=== PATIENT | female | born 1980 | race African-American/Black ===

== ENCOUNTER 2017-05-12 11:30 | Inpatient (IN) ==
[2017-05-12] MEDS ORDERED: MAGNESIUM HYDROXIDE SUSP 30 ML UDCUP PO PRN (16:11)
[2017-05-12] MEDS ORDERED: BISACODYL 10 MG SUPP RECTAL PRN (16:11)
[2017-05-12] MEDS ORDERED: DEXTROSE 5% LACTATED RINGERS 500 ML IV ONE (16:11)
[2017-05-12] MEDS: LACTATED RINGERS 1,000 ML IV SCH (17:15)
[2017-05-12 17:16] LABS: Apearance,Urine CLEAR (Clear); Bacteria,Urine Occasional /HPF (Few); Bilirubin,Urine Negative (Negative); Blood, Urine Negative (Negative); Glucose,Urine (UA) Negative (Negative); Ketones,Urine Negative (Negative); Nitrite,Urine Negative (Negative); Protein,Urine Negative; RBC,Urine <1 /HPF (0-4); Urine Color Yellow (Yellow); Urine Specific Gravity 1.014 (1.001-1.035); Urine Urobilinogen < 2.0 EU/DL (0.2-1.0); WBC,Urine 1 /HPF (0-6)
--- NOTE | 2017-05-12 17:42 | OB/GYN History & Physical ---
History of Present Illness Chief complaint: fever, malaise History of present illness: Ms. Resendez is a 36 year old female at about 7 weeks by LMP who presents with fever and malaise since last . The patient presented to the emergency room over the weekend and they told her she possibly had a UTI but did not treat her with any antibiotics because her urine dip was negative. She was told that her white count was 6 and she probably had a virus and was to be sent home. She called the office on Wednesday and was prescribed Reglan and she became better. On of last week her temperature was 103 and she says this morning it was 100.5. There are no other sick people at home. She has no issues with cramping or bleeding. She has not had an ultrasound or new OB visit yet. The patient says she also has a cough but is unable to produce any sputum from it. She had a sore throat last week but she does not have one anymore. Home Medications Medication Instructions Recorded Confirmed Type Multivitamin () [ 1 tablet PO DAILY 05/12/17 05/12/17 History Vitamin] Allergies Allergy/AdvReac Type Severity Reaction Status Date / Time No Known Allergies Allergy Unverified 05/08/17 12:09 Medical,Surgical,& Family Hx - Medical History Cardio: No history of: CAD Reproductive: No history of: Reproductive Problems (Dr. Dan did an exploritory Lap) - Social History Smoking Status: Never smoker Frequency of Alcohol Use: None Type of Drug Use: None Exam UNDERGROUND MINER - Constitutional Vitals: Vital Signs Temp Pulse Resp BP Pulse Ox 05/12/17 13:34 98.3 F 99 H 20 124/71 99 General appearance: normal weight, mild distress - Respiratory Respiratory exam: Present: rhonchi (mild resolved after a few deep breaths). Absent: accessory muscle use - Cardiovascular Cardiovascular exam: Present: regular rate and rhythm - GI/Abdominal GI/Abdominal exam: Absent: guarding, tenderness, rebound - Extremities Exam Extremities exam: Absent: calf tenderness - Neurological Exam Neurological exam: Present: alert, oriented X3 - Psychiatric Psychiatric exam: Present: normal affect Assessment and Plan (1) Fever Status: Acute Assessment and plan: Labs ordered and are still pending at this time. We will proceed with a throat swab and flu swab even though it is out of season. We will consider a chest x- ray. Risks benefits and alternatives were reviewed with the patient regarding the chest x-ray due to her . Current Visit: Yes (2) Early stage of Status: Acute Assessment and plan: Titers pending and we will proceed with a pelvic ultrasound once the titers are back. Current Visit: Yes
[2017-05-12] MEDS: ONDANSETRON 4 MG/2 ML VIAL IV PRN (17:44)
[2017-05-12 18:48] LABS: Basophils % 0.3 % (0.0-0.8); Eosinophils # 0.1 10*3/uL (0.0-0.87); Eosinophils % 1.4 % (0.00-10.9); Hematocrit 31.9 VOL% (35.7-47.0); Immature Granulocytes % 0.3 %; Immature Granulocytes Absolute 0.02 #; Lymphocytes % 31.8 % (21.3-54.2); Mean Corpuscular HGB Conc 34.5 GM/DL (32-36); Mean Corpuscular Hemoglobin 31 PG (27-34); Mean Corpuscular Volume 89.1 FL (87-102); Mean Platelet Volume 10.5 FL (9.6-12.0); Monocytes # 0.3 10*3/uL (0.11-0.8); Monocytes % 4.8 % (1.7-12.7); Neutrophils # 3.8 10*3/uL (1.4-7.4); Neutrophils % 61.4 % (38.7-73.9); Platelet Count 307 T/CUMM (130-400); Red Blood Count 3.58 MC/CUMM (3.8-5.5); Red Cell Distribution Width 12.1 % (9.3-17.3); White Blood Count 6.2 T/CUMM (4-12)
--- NOTE | 2017-05-12 19:01 | XRay Report ---
Exam: XR chest 2V Date: 05/12/2017 6:14 PM Indication: Cough, fever Comparison: None Technical: PA lateral Findings: Examination reveals patchy infiltrate in the right middle lobe with some silhouetting of the heart border and atelectatic change present. Heart is normal in size otherwise. The mediastinum and bony structures are intact. Impression: Right middle lobe pneumonic infiltrate PROCEDURE INTERPRETED AT [facility] DEPARTMENT OF RADIOLOGY Final Report Signed by: Dr. Luis Miguel Velez
[2017-05-12 19:16] LABS: Alanine Aminotransferase 19 U/L (13-56); Alkaline Phosphatase 101 U/L (45-117); Aspartate Amino Transferase 23 U/L (0-37); Bilirubin,Total < 0.39 MG/DL (0.2-1.0); Blood Urea Nitrogen 5 MG/DL (7-18); Glucose 124 MG/DL (74-106); Osmolality,Calculated 274.5 MOS/KG (273-304); Potassium 3.6 MMOL/L (3.5-5.1); Sodium 139 MMOL/L (136-145); Total Protein 6.4 G/DL (6.4-8.3)
--- NOTE | 2017-05-12 19:30 | Ultrasound Report ---
Exam: US OB <= 14 weeks fetus Date: 05/12/2017 6:15 PM Comparison: None Indication: Fever nausea vomiting cramping Findings: Transabdominal imaging was obtained. Uterus: 10.1 x 5.1 x 4.4 cm Gestational sac: Single gestational sac present with heart rate of 145 bpm pole: [place]-rump length is 0.92 cm this corresponds to a 7 week 0 day gestation Yolk sac: Yes Placenta cannot be identified definitely at this estimated gestational age. Amniotic fluid is appropriate for this estimated gestational age Right ovary: 1.7 x 0.9 x 1.3 cm Left ovary: 8.7 x 6.0 x 6.4 cm there is a 7.2 x 5.3 x 4.7 cm cyst in the left ovary second cyst measures 1.7 x 1.4 x 1.8 cm Free fluid: None Bladder: Unremarkable Impression: 1. 7 weeks 0 day intrauterine . Follow-up at 17-20 weeks recommended for morphology. 2. Large cyst in the left ovary measuring up to 7.2 cm with smaller 1.8 cm cyst. Exact etiology is undetermined. Follow-up from a cyst are recommended. The possibility of a dermoid cannot be totally excluded. Ultrasound images were stored and captured PROCEDURE INTERPRETED AT [facility] DEPARTMENT OF RADIOLOGY Final Report Signed by: Dr. Luis Miguel Velez
[2017-05-12 19:31] LABS: Alanine Aminotransferase 20 U/L (13-56); Albumin 2.9 G/DL (3.4-5.0); Alkaline Phosphatase 97 U/L (45-117); Aspartate Amino Transferase 21 U/L (0-37); Bilirubin,Total < 0.39 MG/DL (0.2-1.0); Blood Urea Nitrogen 4 MG/DL (7-18); Calcium 8.6 MG/DL (8.5-10.1); Glucose 125 MG/DL (74-106); Osmolality,Calculated 276.4 MOS/KG (273-304); Potassium 3.7 MMOL/L (3.5-5.1); Sodium 140 MMOL/L (136-145); Total Protein 6.2 G/DL (6.4-8.3)
[2017-05-12] MEDS: DOCUSATE SODIUM 100 MG CAPSULE PO SCH (20:31)
[2017-05-12] MEDS ORDERED: BENZOCAINE/MENTHOL LOZENGE 18/BOX PO PRN (23:04)
[2017-05-12] MEDS: guaiFENesin/CODEINE 5 ML LIQUID PO PRN (23:23)
[2017-05-12] MEDS: cefTRIAXone 1,000 MG in SODIUM CHLORIDE 0.9% 100 ML IV SCH (23:26)
[2017-05-13] MEDS: LACTATED RINGERS 1,000 ML IV SCH ×5 (03:00→20:30)
[2017-05-13] MEDS ORDERED: ACETAMINOPHEN 325 MG TABLET PO PRN (07:33)
[2017-05-13] MEDS: BENZONATATE 100 MG CAPSULE PO PRN ×2 (08:16→13:28)
[2017-05-13] MEDS: DOCUSATE SODIUM 100 MG CAPSULE PO SCH ×2 (08:17→20:56)
--- NOTE | 2017-05-13 12:36 | OB/GYN Progress Note ---
Assessment and Plan (1) Fever Status: Acute Assessment and plan: The pt has not had a fever while admitted. her CXR is indicative of a right middle lobe pneumonia. She was started on Rocephin yesterday. we will get a medicine consult for further management Current Visit: Yes (2) Early stage of Status: Acute Assessment and plan: u/s done and showed an IUP at 7 week. No Ob issues at this time. Once pt is more stable we may order the new OB labs while th ept is in the hospital Current Visit: Yes CUPOLA LINER - PN: Subj Interval history: The patient is feeling a little bit better but she still has a cough. She says it is nonproductive or if it is productive she cannot bring it all the way up. She says the Robitussin did help her some last night. Exam CUPOLA LINER - Constitutional Vitals: Vital Signs Temp Pulse Resp BP Pulse Ox 05/13/17 11:23 98.1 F 76 18 105/62 99 05/13/17 08:00 98.8 F 77 18 107/67 99 05/13/17 06:00 18 05/13/17 04:00 97.8 F 88 18 113/56 98 05/13/17 02:00 20 05/13/17 00:00 98.8 F 74 20 102/72 100 05/12/17 22:00 20 05/12/17 20:00 98.6 F 100 H 20 113/72 96 05/12/17 13:34 98.3 F 99 H 20 124/71 99 General appearance: normal weight, no acute distress - Respiratory Respiratory exam: Present: clear to auscultation bilaterally. Absent: accessory muscle use - Cardiovascular Cardiovascular exam: Present: regular rate and rhythm - GI/Abdominal GI/Abdominal exam: Absent: guarding, tenderness, rebound - Extremities Exam Extremities exam: Absent: calf tenderness - Neurological Exam Neurological exam: Present: alert, oriented X3 - Psychiatric Psychiatric exam: Present: normal affect, normal mood - Skin Skin exam: Present: normal color Results - Labs CBC & BMP: 05/12/17 17:25 05/12/17 17:25 - Diagnostic Findings Procedure: Ultrasound: report reviewed by me, X-ray: report reviewed by me
--- NOTE | 2017-05-13 13:58 | Hospitalist Consult Note ---
<Adrianna Goddard - Last Filed: 05/13/17 13:53> Assessment and Plan - Time spent with patient Time spent with patient: Greater than 30 minutes (1) Pneumonia affecting in first trimester Status: Acute Assessment and plan: Ms. Resendez is a 36-year-old -Iranian female who is 7 weeks 0 days gestation with her second admitted by Dr. Cartwright from [facility] with pneumonia. Hospital medicine has been consulted to assist with treatment. Patient is currently on Rocephin, Robitussin and Tessalon Perles. Her white count is normal and she is now afebrile. She does have conversational dyspnea and dyspnea on exertion. Will discuss with Dr. Turk if breathing treatments would be appropriate for first trimester patient. Otherwise we will continue this current plan of care and we will continue to monitor. Dr. Turk will see and examined patient and further recommendations to follow. Current Visit: Yes (2) Fever Status: Acute Current Visit: Yes (3) Early stage of Status: Acute Current Visit: Yes History of Present Illness - Data of Consult Patient: new to practice Consult date: 05/13/17 Requesting Physician: Claudia Ozuna - Consult Narrative Reason for consult: pneumonia History of present illness: Ms. Resendez is a 36 year old -Iranian female with no prior medical history but 7 weeks with her second baby admitted by Dr. Cartwright from [facility] with fever and malaise since last . She came to the emergency room over the weekend with the same complaints and they thought she had a UTI or a viral infection. She was not treated with any antibiotics at that time. On last week her temperature was 103 and this morning it was 100.5. Patient states she does have a cough and her chest is sore with inspiration. She also has dyspnea on exertion. She denies headache, blurry vision, dysphasia , abdominal pain, diarrhea or constipation, or lower extremity edema. She has a normal white count and she has been afebrile since admission. Upon exam she is congested with conversational dyspnea and she does have crackles in her bilateral lung bases. She received a dose of Rocephin in the ED yesterday and has Robitussin and Tessalon Perles for cough. Her chest x-ray shows right middle lobe pneumonic infiltrate. 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 Hospital medicine has been consulted to assist with treatment of her pneumonia. CC: Claudia Dowell- - Home Medications and Allergies Home Medications: Home Medications Medication Instructions Recorded Confirmed Type Multivitamin () [ 1 tablet PO DAILY 05/12/17 05/12/17 History Vitamin] Allergies/Adverse Reactions: Allergies Allergy/AdvReac Type Severity Reaction Status Date / Time No Known Allergies Allergy Unverified 05/08/17 12:09 Medical,Surgical,& Family Hx - Medical History Cardio: No history of: CAD Gastrointestinal: No history of: GERD Reproductive: No history of: Reproductive Problems (Dr. Dan did an exploritory Lap) - Surgical History Reproductive Surgeries: Surgical HX of;: Dilation and Curettage - Family History Family History: Reports;: Family Heart Disease - Social History Smoking Status: Never smoker Frequency of Alcohol Use: None Type of Drug Use: None Marital Status: Single Lives With:: Children Functional capacity: independent ambulation Review of systems: A complete 10 system review of systems was obtained and pertinent positives and negatives per HPI Exam - Constitutional Vitals: Period Temp Pulse Resp BP Sys/Carbajal Pulse Ox Last 24 Hr 97.8 F-98.8 F 74-100 18-20 102-113/56-72 96-100 Exam: Constitutional System: No distress. No tremulousness. Head: Normocephalic, atraumatic. Ears, Nose and Throat System: No evidence of Otitis or Mastoiditis. No epistaxis or discharge Eyes System: Pupils equal, round, and reactive. Extraocular muscles intact. Neck: Supple, without adenopathy, No jugular venous distention. No thyromegaly, neck mass, or prior surgery apparent. Respiratory System: Chest bilateral crackles in bases to auscultation. Cardiovascular System: Heart with regular rate and rhythm. No murmur. GI System: Abdomen soft, nontender. Normo active bowel sounds present. Musculoskeletal System: limbs with no pedal edema. Full distal pulses. Neurological System: No discernable sensory deficit. No aphasia Psychiatric System: Conversation is rational Results - Labs CBC & BMP: 05/12/17 17:25 05/12/17 17:25 Lab Results: I have reviewed the past 24 hour labs - Diagnostic Findings Procedure: Chest x-ray: report reviewed by me (Right lower lobe pneumonic infiltrate), Ultrasound: report reviewed by me ( ultrasound shows 7 weeks 0 day intrauterine . Large cyst in the left ovary measuring up to 7.2 cm) <Trish Turk - Last Filed: 05/13/17 14:40> History of Present Illness - Consult Narrative History of present illness: Ms. Resendez is a 36 year old female CC: Claudia Dowell- Exam - Constitutional Vitals: Period Temp Pulse Resp BP Sys/Carbajal Pulse Ox Last 24 Hr 97.8 F-98.8 F 74-100 18-20 102-113/56-72 96-100 Results - Labs CBC & BMP: 05/12/17 17:25 05/12/17 17:25
[2017-05-13] MEDS ORDERED: ALBUTEROL 0.63 MG/3 ML NEB RESP TX PRN (14:17)
[2017-05-13] MEDS: AZITHROMYCIN 250 MG TABLET PO SCH (15:07)
[2017-05-13] MEDS: ONDANSETRON 4 MG/2 ML VIAL IV PRN (18:01)
[2017-05-13] MEDS: cefTRIAXone 1,000 MG in SODIUM CHLORIDE 0.9% 100 ML IV SCH (20:56)
[2017-05-13] MEDS: guaiFENesin/CODEINE 5 ML LIQUID PO PRN (20:57)
[2017-05-14 06:23] LABS: Basophils % 0.3 % (0.0-0.8); Eosinophils # 0.2 10*3/uL (0.0-0.87); Eosinophils % 3.2 % (0.00-10.9); Hemoglobin 10.7 GM/DL (12.0-16.0); Immature Granulocytes % 0.3 %; Immature Granulocytes Absolute 0.02 #; Lymphocytes # 2.4 10*3/uL (1.4-4.0); Lymphocytes % 40.1 % (21.3-54.2); Mean Corpuscular HGB Conc 34.5 GM/DL (32-36); Mean Corpuscular Hemoglobin 31 PG (27-34); Mean Corpuscular Volume 88.8 FL (87-102); Mean Platelet Volume 9.9 FL (9.6-12.0); Monocytes # 0.3 10*3/uL (0.11-0.8); Monocytes % 5.6 % (1.7-12.7); Neutrophils % 50.5 % (38.7-73.9); Platelet Count 296 T/CUMM (130-400); Red Blood Count 3.49 MC/CUMM (3.8-5.5); White Blood Count 5.9 T/CUMM (4-12)
[2017-05-14 06:47] LABS: Eosinophils 2 % (0-10); Hypochromasia 1+; Lymphocytes 46 % (20-55); Platelet Estimate Adequate; Segmented Neutrophils 46 % (50-85); Total Cells Counted 100
[2017-05-14 06:57] LABS: Calcium 8.9 MG/DL (8.5-10.1); Magnesium 1.9 MG/DL (1.8-2.4); Osmolality,Calculated 273.5 MOS/KG (273-304); Potassium 4.4 MMOL/L (3.5-5.1)
[2017-05-14 07:25] VITALS: BP 100/61
[2017-05-14] MEDS: DOCUSATE SODIUM 100 MG CAPSULE PO SCH (08:42)
[2017-05-14] MEDS: AZITHROMYCIN 250 MG TABLET PO SCH (08:42)
[2017-05-14] MEDS: BENZONATATE 100 MG CAPSULE PO PRN (08:44)
--- NOTE | 2017-05-14 09:34 | Hospitalist Progress Note ---
Assessment and Plan (1) Early stage of Status: Acute Assessment and plan: Patient improved on current antibiotics. Can be discharged with oral Azithromycin 250mg po daily to complete a 5 day course. Current Visit: Yes (2) Pneumonia affecting in first trimester Status: Acute Assessment and plan: Per OB-[employer]. Current Visit: Yes Hospitalist: Subjective Interval history: Seeing Ms. Resendez in consultation for treatment of bacterial pneumonia. Patient is currently feeling much improved. Currently on Ceftriaxone and azithromycin initiated on yesterday. She has been afebrile since admission. Stable for discharge to complete a five day course total of antibiotics. Exam - Constitutional Vitals: Period Temp Pulse Resp BP Sys/Carbajal Pulse Ox Last 24 Hr 97.2 F-99.8 F 73-86 18-20 100-110/61-81 92-100 General appearance: no acute distress - Head Head exam: Present: normal inspection, normocephalic, atraumatic - Eye Eye exam: Present: EOMI - ENT ENT exam: Present: normal exam - Respiratory Respiratory exam: Present: clear to auscultation bilaterally. Absent: accessory muscle use, rales, rhonchi, stridor, wheezes - Cardiovascular Cardiovascular exam: Present: regular rate and rhythm. Absent: diastolic murmur , gallop, systolic murmur - GI/Abdominal GI/Abdominal exam: Present: normal bowel sounds - Neurological Exam Neurological exam: Present: alert, oriented X3, CN II-XII intact - Psychiatric Psychiatric exam: Present: normal affect, normal mood - Skin Skin exam: Present: normal color, warm, dry Results - Labs CBC & BMP: 05/14/17 05:53 05/14/17 05:53
--- NOTE | 2017-05-14 10:28 | Discharge Summary ---
Hospital Course - Hospital Course Hospital Course: The pt was admitted at 7 weeks with fever and cough. She was diagnosed with right middle lobe pneumonia and started on Rocephin and PO azithromycin. The hospitalist was consulted as well. The pt improved after a couple of days on the antibiotic. She had a pelvic u/s which showed an IUP and a 7 cm ovarian cyst. The pt has no symptoms of the cyst. Diagnosis - Discharge Diagnosis (1) Fever Status: Acute (2) Early stage of Status: Acute Specialty Discharge - Follow Up or Referrals Follow up with: Claudia Ozuna MD [Physician] - (pt has appointment on () at 2:30 pm ) Discharge Plan - Discharge Data Disposition: Disch To Home/Self Care Condition at Discharge: Stable Discharge Diet: advance to your usual diet Activity: no lifting Hygiene: may shower Weight Bearing at Discharge: full weight bearing Contact your physician if you experience:: fever over 101, Difficulty voiding, Redness or swelling, Nausea/Vomiting, Shortness of breath, Bleeding, pain uncontrolled by pain medications - Discharge Medications New Azithromycin Tab [Zithromax Tab] 250 mg PO DAILY #7 tablet No Action Multivitamin () [ Vitamin] 1 tablet PO DAILY - Follow Up or Referral - Forms/Instructions Exam - Constitutional Vitals: Period Temp Pulse Resp BP Sys/Carbajal Pulse Ox Last 24 Hr 97.2 F-99.8 F 73-86 18-20 100-110/61-81 92-100 General appearance: normal weight, no acute distress - Respiratory Respiratory exam: Present: clear to auscultation bilaterally. Absent: accessory muscle use - Cardiovascular Cardiovascular exam: Present: regular rate and rhythm - GI/Abdominal GI/Abdominal exam: Absent: guarding, tenderness, rebound - Extremities Exam Extremities exam: Absent: calf tenderness - Neurological Exam Neurological exam: Present: alert, oriented X3 - Psychiatric Psychiatric exam: Present: normal affect Discharge Results Procedures and tests throughout hospitalization: Pending Orders 05/12/17 16:45 Quick Strep Panel Stat 05/12/17 17:00 Urine Culture Stat 05/13/17 14:13 Sputum Culture and Gram Stain Routine Streptococcus pneumoniae Ag, U Routine 05/14/17 07:30 Legionella Ag, Urine Routine Labs on day of discharge: Labs from last 24 hours 05/14/17 05/14/17 05:53 05:53 WBC 5.9 RBC 3.49 L Hgb 10.7 L Hct 31.0 L MCV 88.8 MCH 31 MCHC 34.5 RDW 12.0 Plt Count 296 MPV 9.9 Neut % (Auto) 50.5 Lymph % (Auto) 40.1 Rich % (Auto) 5.6 Eos % (Auto) 3.2 Baso % (Auto) 0.3 Neut # (Auto) 3.0 Lymph # (Auto) 2.4 Rich # (Auto) 0.3 Eos # (Auto) 0.2 Baso # (Auto) 0.0 Total Counted 100 Immature Gran % 0.3 Nucleated RBC % 0.0 Immature Gran # 0.02 Segmented Neutrophils 46 L Lymphocytes 46 Monocytes 6 Eosinophils 2 Nucleated RBCs # 0.00 Platelet Estimate Adequate Hypochromasia 1+ Sodium 139 Potassium 4.4 Chloride 105 Carbon Dioxide 25 Anion Gap 13.4 BUN 5 L Creatinine 0.50 L GFR Calculation 170 BUN/Creatinine Ratio 10.00 Glucose 91 Calculated Osmolality 273.5 Calcium 8.9 Magnesium 1.9 Preliminary micro results at discharge 05/12/17 16:45 Quick Strep Confirmation Culture - Preliminary Throat No Group A Streptococcus isolated. DS: Provider Date of admission: 05/12/17 13:05 Primary care physician: . No PCP Attending physician on admission: Claudia Dowell- Consults: 05/13/17 07:35 Consult to Physician [CONS] Routine Comment: Consulting Provider: Consult to Specialist Group: Hospitalist Person Notified: [facility] Nurse Practioner Date Notified: 05/13/17 Time Notified: 07:30 Consult Notification Comment: Paged admit pager Discharging clinician: Claudia Dowell- Expected date of discharge: 05/14/17
[2017-05-14] MEDS: LACTATED RINGERS 1,000 ML IV SCH (11:16)
== END 2017-05-14 11:23 | disposition home or self-care (01) | DRG 781 ==
LOC: N.2E 13:05
PROVIDERS: ADMIT Obstetrics & Gynecology; ATTEND Obstetrics & Gynecology

== ENCOUNTER 2017-12-21 05:42 | Inpatient (IN) ==
[2017-12-21] MEDS ORDERED: FAMOTIDINE 20 MG/2 ML VIAL IV ONE (05:54)
[2017-12-21] MEDS ORDERED: CITRIC ACID/SODIUM CITRATE 30 ML UDCUP PO ONE (05:54)
[2017-12-21] MEDS ORDERED: ceFAZolin 2,000 MG in PREMIX 1 EACH IV ONE (05:54)
[2017-12-21] MEDS ORDERED: OXYTOCIN/LR 20 UNIT/1,000 ML BAG IV ONE ×2 (05:57→08:53)
[2017-12-21] MEDS: LACTATED RINGERS 1,000 ML IV SCH ×2 (06:15→20:35)
[2017-12-21 06:22] LABS: Basophils % 0.3 % (0.0-0.8); Eosinophils # 0.1 10*3/uL (0.0-0.87); Eosinophils % 1.2 % (0.00-10.9); Hematocrit 34.8 VOL% (35.7-47.0); Hemoglobin 11.4 GM/DL (12.0-16.0); Immature Granulocytes % 0.7 %; Immature Granulocytes Absolute 0.07 #; Lymphocytes # 3.6 10*3/uL (1.4-4.0); Lymphocytes % 33.4 % (21.3-54.2); Mean Corpuscular HGB Conc 32.8 GM/DL (32-36); Mean Corpuscular Hemoglobin 29 PG (27-34); Mean Corpuscular Volume 87.7 FL (87-102); Mean Platelet Volume 10.9 FL (9.6-12.0); Monocytes # 0.7 10*3/uL (0.11-0.8); Monocytes % 6.5 % (1.7-12.7); Neutrophils # 6.2 10*3/uL (1.4-7.4); Neutrophils % 57.9 % (38.7-73.9); Platelet Count 265 T/CUMM (130-400); Red Blood Count 3.97 MC/CUMM (3.8-5.5); Red Cell Distribution Width 15.3 % (9.3-17.3); White Blood Count 10.7 T/CUMM (4-12)
[2017-12-21 06:51] LABS: Alanine Aminotransferase 11 U/L (13-56); Albumin 2.4 G/DL (3.4-5.0); Alkaline Phosphatase 186 U/L (45-117); Aspartate Amino Transferase 32 U/L (0-37); Bilirubin,Total < 0.39 MG/DL (0.2-1.0); Blood Urea Nitrogen 7 MG/DL (7-18); Calcium 8.9 MG/DL (8.5-10.1); Glucose 83 MG/DL (74-106); Osmolality,Calculated 271.7 MOS/KG (273-304); Potassium 4.1 MMOL/L (3.5-5.1); Sodium 138 MMOL/L (136-145); Total Protein 6.5 G/DL (6.4-8.3)
[2017-12-21 07:43] LABS: Apearance,Urine CLEAR (Clear); Bilirubin,Urine Negative (Negative); Blood, Urine Negative (Negative); Glucose,Urine (UA) Negative (Negative); Ketones,Urine Negative (Negative); Mucus,Urine Occasional /LPF (Occasional); Nitrite,Urine Negative (Negative); Protein,Urine Negative; RBC,Urine 3 /HPF (0-4); Squamous Epithelial Cell,Urine Occasional /HPF (0-10); Urine Color Yellow (Yellow); Urine Specific Gravity 1.008 (1.001-1.035); Urine Urobilinogen < 2.0 EU/DL (0.2-1.0); WBC,Urine <1 /HPF (0-6)
[2017-12-21 08:50] LABS: Cord Venous Blood HCO3 19.6 MMOL/L; Cord Venous Blood PCO2 50.4 MMHG; Cord Venous Blood PO2 46.1
[2017-12-21] MEDS ORDERED: MEASLES/MUMPS/RUBELLA VACCINE 0.5 ML VIAL SUBCUT ONE (08:53)
[2017-12-21] MEDS ORDERED: WITCH HAZEL PADS 100/JAR TOP PRN (08:53)
[2017-12-21] MEDS ORDERED: ACETAMINOPHEN 325 MG TABLET PO PRN (08:53)
[2017-12-21] MEDS ORDERED: oxyCODONE/ACETAMINOPHEN 5-325 MG TABLET PO PRN (08:53)
[2017-12-21] MEDS ORDERED: BISACODYL 10 MG SUPP RECTAL PRN (08:53)
[2017-12-21] MEDS ORDERED: DIPH/TET/ACEL PERT BOOSTER VACCINE 0.5 ML VIAL IM ONE (08:53)
[2017-12-21] MEDS ORDERED: RHO(D) IMMUNE GLOBULIN 300 MCG SYRINGE IM ONE (08:53)
[2017-12-21] MEDS ORDERED: LANOLIN 50% CREAM 0.3 OZ TUBE TOP PRN (08:53)
[2017-12-21] MEDS ORDERED: ONDANSETRON 4 MG/2 ML VIAL IV PRN (08:53)
[2017-12-21] MEDS ORDERED: HYDROCORTISONE 2.5% RECTAL CREAM 30 GM TUBE TOP PRN (08:53)
[2017-12-21] MEDS ORDERED: BENZOCAINE 20%/MENTHOL 0.5% SPRAY 56 GM CAN TOP PRN (08:53)
[2017-12-21] MEDS ORDERED: SEVOFLURANE 1 UNIT/15 MINUTE INH ONE (09:08)
[2017-12-21] MEDS ORDERED: MORPHINE 10 MG/10 ML VIAL ONE (09:08)
[2017-12-21] MEDS ORDERED: ONDANSETRON 4 MG/2 ML VIAL ONE (09:09)
[2017-12-21] MEDS ORDERED: SUCCINYLCHOLINE 200 MG/10 ML VIAL ONE (09:09)
[2017-12-21] MEDS ORDERED: MIDAZOLAM 2 MG/2 ML VIAL ONE (09:09)
[2017-12-21] MEDS ORDERED: ACETAMINOPHEN 1,000 MG/100 ML VIAL IV ONE (09:09)
[2017-12-21] MEDS ORDERED: fentaNYL 100 MCG/2 ML VIAL ONE (09:09)
[2017-12-21] MEDS ORDERED: DEXAMETHASONE 10 MG/1 ML VIAL ONE (09:09)
[2017-12-21] MEDS ORDERED: NEOSTIGMINE 10 MG/10 ML VIAL ONE (09:10)
[2017-12-21] MEDS ORDERED: GLYCOPYRROLATE 0.4 MG/2 ML VIAL ONE (09:10)
[2017-12-21] MEDS ORDERED: ROCURONIUM 100 MG/10 ML VIAL IV ONE (09:10)
[2017-12-21] MEDS ORDERED: LACTATED RINGERS 3,000 ML IV ONE (09:10)
[2017-12-21] MEDS ORDERED: HYDROmorphone 2 MG/1 ML VIAL IV PRN ×2 (09:30→12:04)
[2017-12-21] MEDS: ceFAZolin 1,000 MG in SYRINGE 1 EACH IV SCH ×2 (15:49→23:19)
[2017-12-21] MEDS: oxyCODONE/ACETAMINOPHEN 5-325 MG TABLET PO PRN ×2 (17:19→23:19)
[2017-12-21] MEDS: AZITHROMYCIN 250 MG TABLET PO SCH (18:54)
[2017-12-21] MEDS ORDERED: SODIUM CHLORIDE 0.9% 100 ML IV ONE (23:09)
[2017-12-21] MEDS: IBUPROFEN 800 MG TABLET PO PRN (23:19)
[2017-12-22] MEDS: DOCUSATE SODIUM 100 MG CAPSULE PO SCH ×4 (01:24→22:35)
[2017-12-22] MEDS: MULTIVITAMIN (PRENATAL) TABLET PO SCH ×2 (01:26→08:56)
[2017-12-22] MEDS: IBUPROFEN 800 MG TABLET PO PRN ×3 (04:55→16:16)
[2017-12-22] MEDS: LACTATED RINGERS 1,000 ML IV SCH (04:57)
[2017-12-22] MEDS: SIMETHICONE CHEW 80 MG TABLET PO PRN ×2 (04:58→17:37)
[2017-12-22 07:27] LABS: Basophils % 0.1 % (0.0-0.8); Eosinophils % 0.2 % (0.00-10.9); Hematocrit 23.7 VOL% (35.7-47.0); Immature Granulocytes % 0.7 %; Immature Granulocytes Absolute 0.12 #; Lymphocytes # 4.5 10*3/uL (1.4-4.0); Mean Corpuscular HGB Conc 32.9 GM/DL (32-36); Mean Corpuscular Hemoglobin 29 PG (27-34); Mean Corpuscular Volume 86.8 FL (87-102); Mean Platelet Volume 11.5 FL (9.6-12.0); Monocytes # 1.2 10*3/uL (0.11-0.8); Monocytes % 6.7 % (1.7-12.7); Neutrophils # 11.5 10*3/uL (1.4-7.4); Neutrophils % 66.3 % (38.7-73.9); Platelet Count 239 T/CUMM (130-400); Red Cell Distribution Width 15.5 % (9.3-17.3)
[2017-12-22 07:28] LABS: Hemoglobin 7.8 GM/DL (12.0-16.0); Red Blood Count 2.73 MC/CUMM (3.8-5.5); White Blood Count 17.3 T/CUMM (4-12)
[2017-12-22] MEDS: ceFAZolin 1,000 MG in SYRINGE 1 EACH IV SCH (08:55)
[2017-12-22] MEDS: FERROUS SULFATE 325 MG TABLET PO SCH ×2 (08:56→22:35)
[2017-12-22] MEDS: AZITHROMYCIN 250 MG TABLET PO SCH (08:57)
[2017-12-22] MEDS: oxyCODONE/ACETAMINOPHEN 5-325 MG TABLET PO PRN ×2 (11:40→17:44)
[2017-12-22] MEDS ORDERED: MAGNESIUM HYDROXIDE SUSP 30 ML UDCUP PO PRN (20:49)
[2017-12-22] MEDS ORDERED: oxyCODONE/ACETAMINOPHEN 5-325 MG TABLET PO PRN (22:13)
[2017-12-23] MEDS: IBUPROFEN 800 MG TABLET PO PRN ×2 (01:19→10:12)
[2017-12-23] MEDS: SIMETHICONE CHEW 80 MG TABLET PO PRN (01:19)
[2017-12-23] MEDS: oxyCODONE/ACETAMINOPHEN 5-325 MG TABLET PO PRN ×3 (02:32→11:09)
[2017-12-23] MEDS ORDERED: METOCLOPRAMIDE 10 MG TABLET PO SCH (05:00)
[2017-12-23] MEDS ORDERED: MAGNESIUM CITRATE 300 ML BOTTLE PO ONE (06:05)
[2017-12-23 06:11] LABS: Basophils % 0.2 % (0.0-0.8); Eosinophils # 0.1 10*3/uL (0.0-0.87); Eosinophils % 0.3 % (0.00-10.9); Hematocrit 23.9 VOL% (35.7-47.0); Hemoglobin 7.9 GM/DL (12.0-16.0); Immature Granulocytes % 0.7 %; Immature Granulocytes Absolute 0.12 #; Lymphocytes # 3.5 10*3/uL (1.4-4.0); Lymphocytes % 19.5 % (21.3-54.2); Mean Corpuscular HGB Conc 33.1 GM/DL (32-36); Mean Corpuscular Hemoglobin 29 PG (27-34); Mean Corpuscular Volume 88.5 FL (87-102); Monocytes % 5.8 % (1.7-12.7); Neutrophils # 13.1 10*3/uL (1.4-7.4); Neutrophils % 73.5 % (38.7-73.9); Platelet Count 252 T/CUMM (130-400); Red Cell Distribution Width 15.9 % (9.3-17.3); White Blood Count 17.8 T/CUMM (4-12)
[2017-12-23 07:43] VITALS: BP 119/64
[2017-12-23] MEDS: DOCUSATE SODIUM 100 MG CAPSULE PO SCH (08:36)
[2017-12-23] MEDS: FERROUS SULFATE 325 MG TABLET PO SCH (08:36)
[2017-12-23] MEDS: MULTIVITAMIN (PRENATAL) TABLET PO SCH (08:36)
[2017-12-23] MEDS: AZITHROMYCIN 250 MG TABLET PO SCH (08:36)
== END 2017-12-23 13:50 | disposition home or self-care (01) | DRG 766 ==
LOC: N.LDOUT 05:42 → N.LD 05:43 → N.OB 10:07
PROVIDERS: ADMIT Specialist; ATTEND Specialist
PROC: LDCSECT (ICD-10-PCS; 2017-12-21 07:00)

== ENCOUNTER 2017-12-29 12:06 | Inpatient (IN) ==
[2017-12-29] MEDS ORDERED: LEVOFLOXACIN INJ 750 MG in PREMIX 1 EACH IV STA (14:17)
[2017-12-29] MEDS ORDERED: ALBUTEROL/IPRATROPIUM 3 ML NEB RESP TX STA (14:17)
[2017-12-29 15:05] LABS: Basophils # 0.1 10*3/uL (0.0-0.2); Basophils % 0.2 % (0.0-0.8); Eosinophils # 0.1 10*3/uL (0.0-0.87); Eosinophils % 0.2 % (0.00-10.9); Hematocrit 25.4 VOL% (35.7-47.0); Hemoglobin 8.1 GM/DL (12.0-16.0); Immature Granulocytes Absolute 0.72 #; Lymphocytes # 2.4 10*3/uL (1.4-4.0); Lymphocytes % 9.7 % (21.3-54.2); Mean Corpuscular HGB Conc 31.9 GM/DL (32-36); Mean Corpuscular Hemoglobin 29 PG (27-34); Mean Corpuscular Volume 90.1 FL (87-102); Mean Platelet Volume 9.7 FL (9.6-12.0); Monocytes # 1.5 10*3/uL (0.11-0.8); NRBC # 0.02 10*3/uL; Neutrophils # 19.5 10*3/uL (1.4-7.4); Neutrophils % 80.9 % (38.7-73.9); Platelet Count 498 T/CUMM (130-400); Red Blood Count 2.82 MC/CUMM (3.8-5.5); Red Cell Distribution Width 16.2 % (9.3-17.3); White Blood Count 24.2 T/CUMM (4-12)
[2017-12-29 15:27] LABS: Alanine Aminotransferase 14 U/L (13-56); Albumin 1.8 G/DL (3.4-5.0); Alkaline Phosphatase 240 U/L (45-117); Aspartate Amino Transferase 27 U/L (0-37); Bilirubin,Total < 0.39 MG/DL (0.2-1.0); Blood Urea Nitrogen 13 MG/DL (7-18); Calcium 8.7 MG/DL (8.5-10.1); Glucose 88 MG/DL (74-106); Osmolality,Calculated 281.1 MOS/KG (273-304); Potassium 4.4 MMOL/L (3.5-5.1); Sodium 142 MMOL/L (136-145); Total Protein 6.1 G/DL (6.4-8.3)
[2017-12-29] MEDS ORDERED: LEVOFLOXACIN INJ 150 ML IV ONE (15:38)
[2017-12-29 15:52] LABS: PT Patient Result 10.9 SECS
[2017-12-29 16:17] LABS: Band Neutrophils 3 % (0-10); Lymphocytes 7 % (20-55); Segmented Neutrophils 84 % (50-85); Total Cells Counted 100
[2017-12-29 16:18] LABS: Anisocytosis 1+; Macrocytosis 1+; Platelet Estimate Increased; Polychromasia Slight
[2017-12-29 16:21] LABS: Apearance,Urine Slightly Hazy (Clear); Bacteria,Urine Occasional /HPF (Few); Bilirubin,Urine Negative (Negative); Blood, Urine Moderate mg/dL (Negative); Glucose,Urine (UA) Negative (Negative); Ketones,Urine Negative (Negative); Mucus,Urine Few /LPF (Occasional); Nitrite,Urine Negative (Negative); Protein,Urine 30 MG/DL; RBC,Urine 1 /HPF (0-4); Squamous Epithelial Cell,Urine Occasional /HPF (0-10); Urine Color Yellow (Yellow); Urine Specific Gravity 1.034 (1.001-1.035); WBC,Urine 70 /HPF (0-6)
[2017-12-29] MEDS ORDERED: SODIUM CHLORIDE 0.9% 1,000 ML IV STA (16:35)
[2017-12-29] MEDS ORDERED: ACETAMINOPHEN 500 MG TABLET ONE (16:40)
[2017-12-29] MEDS ORDERED: ACETAMINOPHEN 500 MG TABLET PO STA (16:44)
[2017-12-29] MEDS ORDERED: DOCUSATE SODIUM 100 MG CAPSULE PO PRN (17:00)
[2017-12-29] MEDS ORDERED: ONDANSETRON 4 MG/2 ML VIAL IV PRN (17:00)
[2017-12-29] MEDS ORDERED: BISACODYL 10 MG SUPP RECTAL PRN (17:00)
[2017-12-29] MEDS ORDERED: MAGNESIUM HYDROXIDE SUSP 30 ML UDCUP PO PRN (17:00)
[2017-12-29] MEDS ORDERED: PIPERACILLIN/TAZOBACTAM 3,375 MG in SODIUM CHLORIDE 0.9% 100 ML IV STA (17:00)
[2017-12-29] MEDS ORDERED: BENZOCAINE/MENTHOL LOZENGE 18/BOX PO PRN (17:00)
[2017-12-29] MEDS: LACTATED RINGERS 1,000 ML IV SCH (18:18)
[2017-12-30] MEDS: IBUPROFEN 800 MG TABLET PO PRN ×3 (00:28→21:20)
[2017-12-30] MEDS: LACTATED RINGERS 1,000 ML IV SCH ×2 (01:18→09:15)
[2017-12-30] MEDS: ACETAMINOPHEN 325 MG TABLET PO PRN (01:46)
[2017-12-30 05:23] LABS: Basophils % 0.1 % (0.0-0.8); Eosinophils # 0.1 10*3/uL (0.0-0.87); Eosinophils % 0.3 % (0.00-10.9); Hematocrit 20.3 VOL% (35.7-47.0); Hemoglobin 6.5 GM/DL (12.0-16.0); Immature Granulocytes % 4.4 %; Immature Granulocytes Absolute 0.96 #; Lymphocytes # 2.7 10*3/uL (1.4-4.0); Lymphocytes % 12.7 % (21.3-54.2); Mean Corpuscular Hemoglobin 29 PG (27-34); Mean Platelet Volume 9.6 FL (9.6-12.0); Monocytes # 1.3 10*3/uL (0.11-0.8); NRBC # 0.02 10*3/uL; Neutrophils # 16.5 10*3/uL (1.4-7.4); Neutrophils % 76.5 % (38.7-73.9); Platelet Count 445 T/CUMM (130-400); Red Blood Count 2.28 MC/CUMM (3.8-5.5); Red Cell Distribution Width 16.5 % (9.3-17.3); White Blood Count 21.6 T/CUMM (4-12)
[2017-12-30 06:01] LABS: Band Neutrophils 1 % (0-10); Giant Platelets Few; Hypochromasia 1+; Lymphocytes 9 % (20-55); Microcytosis 1+; Platelet Estimate Increased; Segmented Neutrophils 89 % (50-85); Total Cells Counted 100
[2017-12-30] MEDS ORDERED: SODIUM CHLORIDE 0.9% 1,000 ML IV PRN (06:20)
[2017-12-30] MEDS ORDERED: HYDROmorphone 2 MG/1 ML VIAL ONE (07:43)
[2017-12-30] MEDS ORDERED: HYDROmorphone 2 MG/1 ML VIAL IV ONE (08:00)
[2017-12-30] MEDS: PIPERACILLIN/TAZOBACTAM 3,375 MG in SODIUM CHLORIDE 0.9% 100 ML IV SCH (09:13)
[2017-12-30] MEDS: SERTRALINE 50 MG TABLET PO SCH (17:05)
[2017-12-30] MEDS: ALPRAZolam 0.25 MG TABLET PO PRN (17:08)
[2017-12-31] MEDS: PIPERACILLIN/TAZOBACTAM 3,375 MG in SODIUM CHLORIDE 0.9% 100 ML IV SCH ×4 (00:10→18:25)
[2017-12-31] MEDS: LACTATED RINGERS 1,000 ML IV SCH ×4 (01:25→18:26)
[2017-12-31 05:20] LABS: Hematocrit 29.3 VOL% (35.7-47.0); Hemoglobin 9.4 GM/DL (12.0-16.0)
[2017-12-31] MEDS: SERTRALINE 50 MG TABLET PO SCH (08:35)
[2017-12-31] MEDS: SODIUM HYPOCHLORITE 0.25% IRRIG 473 ML BOTTLE TOP SCH (11:18)
[2017-12-31] MEDS: ALPRAZolam 0.25 MG TABLET PO PRN (12:05)
[2017-12-31] MEDS ORDERED: HYDROmorphone 2 MG/1 ML VIAL IV ONE (12:07)
[2017-12-31] MEDS ORDERED: HYDROmorphone 2 MG/1 ML VIAL ONE (12:08)
[2017-12-31] MEDS ORDERED: CHLORHEXIDINE 4% SOLN 118 ML BOTTLE TOP ONE (15:14)
[2017-12-31] MEDS ORDERED: SKIN HEALING OINT (AQUAPHOR) 50 GM TUBE TOP PRN (15:14)
[2017-12-31] MEDS ORDERED: ACETAMINOPHEN 650 MG PO PRN (15:16)
[2017-12-31] MEDS ORDERED: HYDROmorphone 2 MG/1 ML VIAL IV PRN (15:18)
[2017-12-31] MEDS: IBUPROFEN 800 MG TABLET PO PRN (15:26)
[2017-12-31] MEDS: ACETAMINOPHEN 325 MG TABLET PO PRN (22:03)
[2017-12-31] MEDS: FERROUS SULFATE 325 MG TABLET PO SCH (22:04)
[2017-12-31] MEDS: VERAPAMIL 80 MG TABLET PO SCH (22:05)
[2017-12-31] MEDS: DOCUSATE SODIUM 100 MG CAPSULE PO SCH (22:05)
[2018-01-01] MEDS: PIPERACILLIN/TAZOBACTAM 3,375 MG in SODIUM CHLORIDE 0.9% 100 ML IV SCH ×3 (00:58→17:34)
[2018-01-01] MEDS: IBUPROFEN 800 MG TABLET PO PRN ×2 (04:47→14:09)
[2018-01-01 06:26] LABS: Basophils # 0.1 10*3/uL (0.0-0.2); Basophils % 0.2 % (0.0-0.8); Eosinophils # 0.1 10*3/uL (0.0-0.87); Eosinophils % 0.3 % (0.00-10.9); Hematocrit 28.4 VOL% (35.7-47.0); Hemoglobin 9.7 GM/DL (12.0-16.0); Immature Granulocytes % 1.7 %; Immature Granulocytes Absolute 0.42 #; Lymphocytes # 2.5 10*3/uL (1.4-4.0); Lymphocytes % 9.8 % (21.3-54.2); Mean Corpuscular HGB Conc 34.2 GM/DL (32-36); Mean Corpuscular Hemoglobin 29 PG (27-34); Mean Corpuscular Volume 84.3 FL (87-102); Mean Platelet Volume 9.7 FL (9.6-12.0); Monocytes # 1.2 10*3/uL (0.11-0.8); Monocytes % 4.8 % (1.7-12.7); Neutrophils # 21.1 10*3/uL (1.4-7.4); Neutrophils % 83.2 % (38.7-73.9); Platelet Count 512 T/CUMM (130-400); Red Blood Count 3.37 MC/CUMM (3.8-5.5); Red Cell Distribution Width 16.1 % (9.3-17.3); White Blood Count 25.4 T/CUMM (4-12)
[2018-01-01 06:44] LABS: Calcium 8.1 MG/DL (8.5-10.1); Magnesium 1.9 MG/DL (1.8-2.4); Osmolality,Calculated 274.5 MOS/KG (273-304); Potassium 4.4 MMOL/L (3.5-5.1)
[2018-01-01 06:54] LABS: Band Neutrophils 2 % (0-10); Giant Platelets Few; Hypochromasia 1+; Lymphocytes 14 % (20-55); Microcytosis Slight; Platelet Estimate Increased; Segmented Neutrophils 81 % (50-85); Total Cells Counted 100
[2018-01-01] MEDS: LACTATED RINGERS 1,000 ML IV SCH ×3 (07:19→16:21)
[2018-01-01] MEDS: SODIUM HYPOCHLORITE 0.25% IRRIG 473 ML BOTTLE TOP SCH (09:44)
[2018-01-01] MEDS: DOCUSATE SODIUM 100 MG CAPSULE PO SCH ×2 (09:44→20:17)
[2018-01-01] MEDS: MULTIVITAMIN (PRENATAL) TABLET PO SCH (09:44)
[2018-01-01] MEDS: FERROUS SULFATE 325 MG TABLET PO SCH ×2 (09:44→20:17)
[2018-01-01] MEDS: SERTRALINE 50 MG TABLET PO SCH (09:44)
[2018-01-01] MEDS: VERAPAMIL 80 MG TABLET PO SCH ×2 (09:49→20:17)
[2018-01-01] MEDS: MEROPENEM 1,000 MG in SYRINGE 1 EACH IV SCH ×2 (12:39→20:18)
[2018-01-02] MEDS: PIPERACILLIN/TAZOBACTAM 3,375 MG in SODIUM CHLORIDE 0.9% 100 ML IV SCH ×3 (00:39→17:23)
[2018-01-02] MEDS: MEROPENEM 1,000 MG in SYRINGE 1 EACH IV SCH ×3 (02:31→20:55)
[2018-01-02] MEDS: DOCUSATE SODIUM 100 MG CAPSULE PO SCH ×2 (09:08→20:55)
[2018-01-02] MEDS: SERTRALINE 50 MG TABLET PO SCH (09:09)
[2018-01-02] MEDS: MULTIVITAMIN (PRENATAL) TABLET PO SCH (09:09)
[2018-01-02] MEDS: FERROUS SULFATE 325 MG TABLET PO SCH ×2 (09:09→20:54)
[2018-01-02] MEDS: SODIUM HYPOCHLORITE 0.25% IRRIG 473 ML BOTTLE TOP SCH (09:09)
[2018-01-02] MEDS: VERAPAMIL 80 MG TABLET PO SCH ×2 (09:09→20:55)
[2018-01-02] MEDS: MORPHINE 2 MG/1 ML SYRINGE IV PRN ×2 (13:53→17:23)
[2018-01-02] MEDS: ALPRAZolam 0.25 MG TABLET PO PRN (17:23)
[2018-01-02] MEDS: IBUPROFEN 800 MG TABLET PO PRN (20:54)
[2018-01-03] MEDS: MORPHINE 2 MG/1 ML SYRINGE IV PRN ×2 (00:19→10:18)
[2018-01-03] MEDS: PIPERACILLIN/TAZOBACTAM 3,375 MG in SODIUM CHLORIDE 0.9% 100 ML IV SCH ×3 (01:41→16:07)
[2018-01-03] MEDS: MEROPENEM 1,000 MG in SYRINGE 1 EACH IV SCH ×2 (04:24→16:06)
[2018-01-03 05:32] LABS: Basophils % 0.2 % (0.0-0.8); Eosinophils # 0.1 10*3/uL (0.0-0.87); Eosinophils % 0.8 % (0.00-10.9); Hematocrit 28.9 VOL% (35.7-47.0); Hemoglobin 9.1 GM/DL (12.0-16.0); Immature Granulocytes % 1.7 %; Immature Granulocytes Absolute 0.26 #; Lymphocytes # 2.9 10*3/uL (1.4-4.0); Lymphocytes % 18.7 % (21.3-54.2); Mean Corpuscular HGB Conc 31.5 GM/DL (32-36); Mean Corpuscular Hemoglobin 28 PG (27-34); Mean Corpuscular Volume 87.8 FL (87-102); Mean Platelet Volume 9.8 FL (9.6-12.0); Monocytes % 6.8 % (1.7-12.7); Neutrophils % 71.8 % (38.7-73.9); Platelet Count 495 T/CUMM (130-400); Red Blood Count 3.29 MC/CUMM (3.8-5.5); Red Cell Distribution Width 16.3 % (9.3-17.3); White Blood Count 15.4 T/CUMM (4-12)
[2018-01-03 06:02] LABS: Calcium 7.9 MG/DL (8.5-10.1); Magnesium 2.3 MG/DL (1.8-2.4); Osmolality,Calculated 280.1 MOS/KG (273-304); Potassium 4.6 MMOL/L (3.5-5.1)
[2018-01-03] MEDS ORDERED: ceFAZolin 2,000 MG in PREMIX 1 EACH IV ONE (09:30)
[2018-01-03] MEDS: SODIUM HYPOCHLORITE 0.25% IRRIG 473 ML BOTTLE TOP SCH (10:23)
[2018-01-03] MEDS ORDERED: BENZOIN COMPOUND TINCTURE 58 ML BOTTLE TOP ONE (14:00)
[2018-01-03] MEDS ORDERED: MORPHINE 2 MG/1 ML SYRINGE IV PRN (14:40)
[2018-01-03] MEDS ORDERED: BISACODYL 5 MG TABLET PO PRN (14:40)
[2018-01-03] MEDS ORDERED: HYDROmorphone 2 MG/1 ML VIAL ONE ×2 (14:45→15:03)
[2018-01-03] MEDS ORDERED: CHLORHEXIDINE 4% SOLN 118 ML BOTTLE TOP ONE (14:49)
[2018-01-03] MEDS ORDERED: ONDANSETRON 4 MG/2 ML VIAL ONE ×2 (15:03→15:17)
[2018-01-03] MEDS: HYDROmorphone 2 MG/1 ML VIAL IV PRN ×2 (15:05→15:15)
[2018-01-03] MEDS ORDERED: ONDANSETRON 4 MG/2 ML VIAL IV PRN (15:14)
[2018-01-03] MEDS ORDERED: SEVOFLURANE 1 UNIT/15 MINUTE INH ONE (15:16)
[2018-01-03] MEDS ORDERED: PROPOFOL 200 MG/20 ML VIAL IV ONE (15:16)
[2018-01-03] MEDS ORDERED: MIDAZOLAM 2 MG/2 ML VIAL ONE (15:17)
[2018-01-03] MEDS ORDERED: fentaNYL 100 MCG/2 ML VIAL ONE (15:17)
[2018-01-03] MEDS ORDERED: DEXAMETHASONE 10 MG/1 ML VIAL ONE (15:17)
[2018-01-03] MEDS ORDERED: ROCURONIUM 100 MG/10 ML VIAL IV ONE (15:17)
[2018-01-03] MEDS ORDERED: LACTATED RINGERS 1,000 ML IV ONE (15:17)
[2018-01-03] MEDS ORDERED: KETOROLAC 30 MG/1 ML VIAL ONE (15:17)
[2018-01-03] MEDS: DEXTROSE 5% NACL 0.45% 1,000 ML IV SCH (16:06)
[2018-01-03] MEDS: SERTRALINE 50 MG TABLET PO SCH (16:11)
[2018-01-03] MEDS: MULTIVITAMIN (PRENATAL) TABLET PO SCH (16:12)
[2018-01-03] MEDS: FERROUS SULFATE 325 MG TABLET PO SCH ×2 (16:12→21:20)
[2018-01-03] MEDS: VERAPAMIL 80 MG TABLET PO SCH ×2 (16:12→21:28)
[2018-01-03] MEDS: DOCUSATE SODIUM 100 MG CAPSULE PO SCH ×2 (16:12→22:50)
[2018-01-03 18:36] LABS: Hematocrit 31.9 VOL% (35.7-47.0); Hemoglobin 10.2 GM/DL (12.0-16.0)
[2018-01-03] MEDS: ceFAZolin 2,000 MG in PREMIX 1 EACH IV SCH (21:19)
[2018-01-04] MEDS: MEROPENEM 1,000 MG in SYRINGE 1 EACH IV SCH ×3 (00:50→16:30)
[2018-01-04] MEDS: DEXTROSE 5% NACL 0.45% 1,000 ML IV SCH ×3 (01:00→21:00)
[2018-01-04] MEDS: PIPERACILLIN/TAZOBACTAM 3,375 MG in SODIUM CHLORIDE 0.9% 100 ML IV SCH ×3 (01:02→16:30)
[2018-01-04] MEDS: ceFAZolin 2,000 MG in PREMIX 1 EACH IV SCH (05:38)
[2018-01-04 06:34] LABS: Basophils % 0.2 % (0.0-0.8); Hematocrit 29.6 VOL% (35.7-47.0); Hemoglobin 9.6 GM/DL (12.0-16.0); Immature Granulocytes Absolute 0.12 #; Lymphocytes # 1.4 10*3/uL (1.4-4.0); Lymphocytes % 12.5 % (21.3-54.2); Mean Corpuscular HGB Conc 32.4 GM/DL (32-36); Mean Corpuscular Hemoglobin 28 PG (27-34); Mean Corpuscular Volume 86.8 FL (87-102); Mean Platelet Volume 9.8 FL (9.6-12.0); Monocytes # 0.3 10*3/uL (0.11-0.8); Monocytes % 2.3 % (1.7-12.7); Neutrophils # 9.6 10*3/uL (1.4-7.4); Platelet Count 561 T/CUMM (130-400); Red Blood Count 3.41 MC/CUMM (3.8-5.5); Red Cell Distribution Width 16.5 % (9.3-17.3); White Blood Count 11.5 T/CUMM (4-12)
[2018-01-04 07:05] LABS: Calcium 8.3 MG/DL (8.5-10.1); Osmolality,Calculated 280.4 MOS/KG (273-304); Potassium 4.9 MMOL/L (3.5-5.1)
[2018-01-04] MEDS: DOCUSATE SODIUM 100 MG CAPSULE PO SCH ×2 (08:43→21:52)
[2018-01-04] MEDS: MULTIVITAMIN (PRENATAL) TABLET PO SCH (08:43)
[2018-01-04] MEDS: FERROUS SULFATE 325 MG TABLET PO SCH ×2 (08:43→21:52)
[2018-01-04] MEDS: SERTRALINE 50 MG TABLET PO SCH (08:43)
[2018-01-04] MEDS: VERAPAMIL 80 MG TABLET PO SCH ×2 (08:43→21:53)
[2018-01-04] MEDS: ALPRAZolam 0.25 MG TABLET PO PRN (08:43)
[2018-01-04] MEDS: PANTOPRAZOLE 40 MG TABLET PO SCH (08:43)
[2018-01-04] MEDS: ENOXAPARIN 40 MG/0.4 ML SYRINGE SUBCUT SCH (08:44)
[2018-01-04] MEDS: SODIUM HYPOCHLORITE 0.25% IRRIG 473 ML BOTTLE TOP SCH (10:25)
[2018-01-05] MEDS: MEROPENEM 1,000 MG in SYRINGE 1 EACH IV SCH ×3 (01:25→16:28)
[2018-01-05] MEDS: PIPERACILLIN/TAZOBACTAM 3,375 MG in SODIUM CHLORIDE 0.9% 100 ML IV SCH ×4 (01:31→16:28)
[2018-01-05] MEDS: ENOXAPARIN 40 MG/0.4 ML SYRINGE SUBCUT SCH (10:57)
[2018-01-05] MEDS: FERROUS SULFATE 325 MG TABLET PO SCH ×2 (10:58→20:24)
[2018-01-05] MEDS: DOCUSATE SODIUM 100 MG CAPSULE PO SCH ×2 (10:58→20:24)
[2018-01-05] MEDS: SERTRALINE 50 MG TABLET PO SCH (10:58)
[2018-01-05] MEDS: PANTOPRAZOLE 40 MG TABLET PO SCH (10:58)
[2018-01-05] MEDS: MULTIVITAMIN (PRENATAL) TABLET PO SCH (10:59)
[2018-01-05] MEDS: SODIUM HYPOCHLORITE 0.25% IRRIG 473 ML BOTTLE TOP SCH (10:59)
[2018-01-05] MEDS: VERAPAMIL 80 MG TABLET PO SCH ×2 (10:59→20:25)
[2018-01-05] MEDS: DEXTROSE 5% NACL 0.45% 1,000 ML IV SCH (13:29)
[2018-01-06] MEDS: MEROPENEM 1,000 MG in SYRINGE 1 EACH IV SCH ×4 (02:04→17:47)
[2018-01-06] MEDS: PIPERACILLIN/TAZOBACTAM 3,375 MG in SODIUM CHLORIDE 0.9% 100 ML IV SCH ×4 (02:11→17:47)
[2018-01-06 05:39] LABS: Basophils % 0.3 % (0.0-0.8); Eosinophils # 0.1 10*3/uL (0.0-0.87); Eosinophils % 0.7 % (0.00-10.9); Hematocrit 30.9 VOL% (35.7-47.0); Hemoglobin 10.1 GM/DL (12.0-16.0); Lymphocytes # 2.9 10*3/uL (1.4-4.0); Lymphocytes % 28.3 % (21.3-54.2); Mean Corpuscular HGB Conc 32.7 GM/DL (32-36); Mean Corpuscular Hemoglobin 29 PG (27-34); Mean Corpuscular Volume 87.8 FL (87-102); Monocytes # 0.6 10*3/uL (0.11-0.8); Monocytes % 5.5 % (1.7-12.7); Neutrophils # 6.5 10*3/uL (1.4-7.4); Neutrophils % 64.2 % (38.7-73.9); Platelet Count 710 T/CUMM (130-400); Red Blood Count 3.52 MC/CUMM (3.8-5.5); Red Cell Distribution Width 16.1 % (9.3-17.3); White Blood Count 10.1 T/CUMM (4-12)
[2018-01-06 05:56] LABS: Calcium 8.6 MG/DL (8.5-10.1); Magnesium 2.3 MG/DL (1.8-2.4); Osmolality,Calculated 287.7 MOS/KG (273-304); Potassium 4.5 MMOL/L (3.5-5.1)
[2018-01-06 06:10] LABS: Hypochromasia 1+; Microcytosis 1+; Platelet Estimate Increased
[2018-01-06] MEDS: ALPRAZolam 0.25 MG TABLET PO PRN (08:41)
[2018-01-06] MEDS ORDERED: ceFAZolin 2,000 MG in PREMIX 1 EACH IV ONE (10:00)
[2018-01-06] MEDS: VERAPAMIL 80 MG TABLET PO SCH ×2 (10:13→21:41)
[2018-01-06] MEDS: DOCUSATE SODIUM 100 MG CAPSULE PO SCH ×2 (10:21→21:41)
[2018-01-06] MEDS ORDERED: FAMOTIDINE 20 MG TABLET PO ONE (10:30)
[2018-01-06] MEDS ORDERED: DIAZEPAM 5 MG TABLET PO ONE (10:30)
[2018-01-06] MEDS: ENOXAPARIN 40 MG/0.4 ML SYRINGE SUBCUT SCH (10:35)
[2018-01-06] MEDS: FERROUS SULFATE 325 MG TABLET PO SCH ×2 (10:35→21:40)
[2018-01-06] MEDS: PANTOPRAZOLE 40 MG TABLET PO SCH (10:36)
[2018-01-06] MEDS: MULTIVITAMIN (PRENATAL) TABLET PO SCH (10:36)
[2018-01-06] MEDS: SERTRALINE 50 MG TABLET PO SCH (10:36)
[2018-01-06] MEDS: LACTATED RINGERS 1,000 ML IV SCH ×2 (10:50→12:01)
[2018-01-06] MEDS ORDERED: BENZOIN COMPOUND TINCTURE 58 ML BOTTLE TOP ONE (11:13)
[2018-01-06] MEDS ORDERED: ONDANSETRON 4 MG/2 ML VIAL ONE ×2 (12:38→12:50)
[2018-01-06] MEDS ORDERED: HYDROmorphone 2 MG/1 ML VIAL ONE ×2 (12:38→13:41)
[2018-01-06] MEDS: HYDROmorphone 2 MG/1 ML VIAL IV PRN ×6 (12:40→19:52)
[2018-01-06] MEDS ORDERED: MIDAZOLAM 2 MG/2 ML VIAL ONE (12:48)
[2018-01-06] MEDS ORDERED: fentaNYL 100 MCG/2 ML VIAL ONE (12:48)
[2018-01-06] MEDS ORDERED: PROPOFOL 200 MG/20 ML VIAL IV ONE (12:49)
[2018-01-06] MEDS ORDERED: KETOROLAC 30 MG/1 ML VIAL ONE (12:50)
[2018-01-06] MEDS ORDERED: SUCCINYLCHOLINE 200 MG/10 ML VIAL ONE (12:50)
[2018-01-06] MEDS ORDERED: ROCURONIUM 100 MG/10 ML VIAL IV ONE (12:50)
[2018-01-06] MEDS ORDERED: LACTATED RINGERS 1,000 ML IV ONE (12:50)
[2018-01-06] MEDS ORDERED: ACETAMINOPHEN 1,000 MG/100 ML VIAL IV ONE (12:50)
[2018-01-06] MEDS ORDERED: SEVOFLURANE 1 UNIT/15 MINUTE INH ONE (12:50)
[2018-01-06] MEDS ORDERED: KETOROLAC 15 MG/1 ML VIAL IV SCH (13:00)
[2018-01-06] MEDS ORDERED: ONDANSETRON 4 MG/2 ML VIAL IV PRN (13:20)
[2018-01-06] MEDS ORDERED: LACTATED RINGERS 1,000 ML IV SCH (13:30)
[2018-01-06] MEDS ORDERED: HYDROmorphone 2 MG/1 ML VIAL IV PRN (13:43)
[2018-01-06] MEDS: DEXTROSE 5% NACL 0.45% 1,000 ML IV SCH (15:50)
[2018-01-07] MEDS: MEROPENEM 1,000 MG in SYRINGE 1 EACH IV SCH ×2 (01:33→08:54)
[2018-01-07] MEDS: PIPERACILLIN/TAZOBACTAM 3,375 MG in SODIUM CHLORIDE 0.9% 100 ML IV SCH ×2 (01:44→09:00)
[2018-01-07 06:55] LABS: Basophils % 0.3 % (0.0-0.8); Eosinophils # 0.2 10*3/uL (0.0-0.87); Eosinophils % 2.3 % (0.00-10.9); Hematocrit 31.4 VOL% (35.7-47.0); Hemoglobin 9.6 GM/DL (12.0-16.0); Immature Granulocytes % 0.7 %; Immature Granulocytes Absolute 0.06 #; Lymphocytes # 2.4 10*3/uL (1.4-4.0); Lymphocytes % 26.7 % (21.3-54.2); Mean Corpuscular HGB Conc 30.6 GM/DL (32-36); Mean Corpuscular Hemoglobin 28 PG (27-34); Mean Corpuscular Volume 90.8 FL (87-102); Mean Platelet Volume 9.7 FL (9.6-12.0); Monocytes # 0.4 10*3/uL (0.11-0.8); Monocytes % 4.9 % (1.7-12.7); Neutrophils # 5.8 10*3/uL (1.4-7.4); Neutrophils % 65.1 % (38.7-73.9); Platelet Count 705 T/CUMM (130-400); Red Blood Count 3.46 MC/CUMM (3.8-5.5); Red Cell Distribution Width 16.2 % (9.3-17.3); White Blood Count 8.8 T/CUMM (4-12)
[2018-01-07 07:22] LABS: Calcium 8.2 MG/DL (8.5-10.1); Osmolality,Calculated 285.7 MOS/KG (273-304); Potassium 4.4 MMOL/L (3.5-5.1)
[2018-01-07] MEDS: PANTOPRAZOLE 40 MG TABLET PO SCH (08:47)
[2018-01-07] MEDS: MULTIVITAMIN (PRENATAL) TABLET PO SCH (08:47)
[2018-01-07] MEDS: DOCUSATE SODIUM 100 MG CAPSULE PO SCH ×2 (08:47→21:52)
[2018-01-07] MEDS: FERROUS SULFATE 325 MG TABLET PO SCH ×2 (08:47→21:51)
[2018-01-07] MEDS: SERTRALINE 50 MG TABLET PO SCH (08:48)
[2018-01-07] MEDS: VERAPAMIL 80 MG TABLET PO SCH ×2 (08:52→21:56)
[2018-01-07] MEDS: HYDROmorphone 2 MG/1 ML VIAL IV PRN ×3 (10:23→21:54)
[2018-01-07] MEDS: ENOXAPARIN 40 MG/0.4 ML SYRINGE SUBCUT SCH (10:25)
[2018-01-07] MEDS: SODIUM HYPOCHLORITE 0.25% IRRIG 473 ML BOTTLE TOP SCH (10:25)
[2018-01-07] MEDS: DOXYCYCLINE HYCLATE 100 MG CAPSULE PO SCH ×2 (11:31→21:52)
[2018-01-07] MEDS: DEXTROSE 5% NACL 0.45% 1,000 ML IV SCH (18:17)
[2018-01-07] MEDS: IBUPROFEN 800 MG TABLET PO PRN (18:19)
[2018-01-08] MEDS: DEXTROSE 5% NACL 0.45% 1,000 ML IV SCH ×2 (05:40)
[2018-01-08] MEDS: LORazepam 1 MG TABLET PO PRN (08:35)
[2018-01-08] MEDS: DOXYCYCLINE HYCLATE 100 MG CAPSULE PO SCH ×2 (08:52→22:39)
[2018-01-08] MEDS: FERROUS SULFATE 325 MG TABLET PO SCH ×2 (08:52→22:39)
[2018-01-08] MEDS: MULTIVITAMIN (PRENATAL) TABLET PO SCH (08:52)
[2018-01-08] MEDS: PANTOPRAZOLE 40 MG TABLET PO SCH (08:52)
[2018-01-08] MEDS: DOCUSATE SODIUM 100 MG CAPSULE PO SCH ×2 (08:52→22:39)
[2018-01-08] MEDS: SERTRALINE 50 MG TABLET PO SCH (08:52)
[2018-01-08] MEDS: VERAPAMIL 80 MG TABLET PO SCH ×2 (08:52→22:41)
[2018-01-08] MEDS: ENOXAPARIN 40 MG/0.4 ML SYRINGE SUBCUT SCH (08:54)
[2018-01-08] MEDS: HYDROmorphone 2 MG/1 ML VIAL IV PRN (12:15)
[2018-01-09] MEDS: MULTIVITAMIN (PRENATAL) TABLET PO SCH (09:05)
[2018-01-09] MEDS: SERTRALINE 50 MG TABLET PO SCH (09:05)
[2018-01-09] MEDS: DOXYCYCLINE HYCLATE 100 MG CAPSULE PO SCH ×2 (09:07→22:16)
[2018-01-09] MEDS: PANTOPRAZOLE 40 MG TABLET PO SCH (09:07)
[2018-01-09] MEDS: FERROUS SULFATE 325 MG TABLET PO SCH ×2 (09:07→22:17)
[2018-01-09] MEDS: ENOXAPARIN 40 MG/0.4 ML SYRINGE SUBCUT SCH (09:07)
[2018-01-09] MEDS: DOCUSATE SODIUM 100 MG CAPSULE PO SCH ×2 (09:08→22:16)
[2018-01-09] MEDS: SODIUM HYPOCHLORITE 0.25% IRRIG 473 ML BOTTLE TOP SCH (09:08)
[2018-01-09] MEDS: VERAPAMIL 80 MG TABLET PO SCH (09:08)
[2018-01-09 10:37] LABS: Calcium 8.9 MG/DL (8.5-10.1); Osmolality,Calculated 280.1 MOS/KG (273-304); Potassium 4.2 MMOL/L (3.5-5.1)
[2018-01-09] MEDS ORDERED: LISINOPRIL 5 MG TABLET PO SCH (15:00)
[2018-01-09] MEDS: IBUPROFEN 800 MG TABLET PO PRN (15:19)
[2018-01-10 06:31] LABS: Calcium 8.7 MG/DL (8.5-10.1); Magnesium 1.9 MG/DL (1.8-2.4); Osmolality,Calculated 280.1 MOS/KG (273-304); Potassium 4.5 MMOL/L (3.5-5.1)
[2018-01-10 08:16] VITALS: BP 137/67
[2018-01-10] MEDS: IBUPROFEN 800 MG TABLET PO PRN (08:47)
[2018-01-10] MEDS ORDERED: GENTAMICIN 0.1% CREAM 15 GM TUBE TOP SCH (09:00)
[2018-01-10] MEDS: LORazepam 1 MG TABLET PO PRN (09:08)
== END 2018-01-10 11:58 | disposition home health service (06) | DRG 769 ==
LOC: N.ED 12:06 → N.EDINP 12:06 → N.2E 17:43
PROVIDERS: ADMIT Specialist; ATTEND Specialist